=== PATIENT | male | born 1960 | race African-American/Black ===

== ENCOUNTER 2023-08-18 01:48 | Emergency (ER) | payer MEDICARE, MEDICAID ==
[~2023-08-18] VITALS: Ht 182.9 cm; Wt 127.0 kg
[~2023-08-18 01:48] MED LIST: AMLO10TA80 PO; HYDR-3735 PO; HYDR-4001 PO; POTA8CAP20 MT; TAMS-11 PO; THIA100T72 PO
[2023-08-18 01:55] VITALS: BP 129/84; PULSE 100; RESP 20; TEMP 98.1; O2SAT 96
[2023-08-18] MEDS: TETANUS, DIPHTHERIA, PERTUSSIS VAC/PF 0.5ML (>10YR OLD) IM ONE (02:52)
[2023-08-18] MEDS: LIDOCAINE HCL/PF 1% 10 MG/ML 5ML VIAL INFIL ONE (02:53)
== END 2023-08-18 03:30 | disposition home or self-care (01) ==
LOC: ER 02:04
DX: S91.311A Laceration without foreign body, right foot, initial encounter (principal); E11.9 Type 2 diabetes mellitus without complications; I10 Essential (primary) hypertension; F10.20 Alcohol dependence, uncomplicated; Z88.2 Allergy status to sulfonamides; W18.39XA Other fall on same level, initial encounter; Y93.89 Activity, other specified; Y92.89 Other specified places as the place of occurrence of the external cause; Y99.8 Other external cause status; Y90.9 Presence of alcohol in blood, level not specified
CPT/HCPCS: 99283; 73630; 90715; 12002; 90471; J3490

== ENCOUNTER 2024-05-10 01:11 | Emergency (ER) | payer BC ==
[~2024-05-10] VITALS: Ht 177.8 cm; Wt 100.0 kg
[~2024-05-10 01:11] MED LIST changes: -HYDR-4001 PO; +SERT-422 MT
[2024-05-10 01:51] VITALS: O2SAT 99
[2024-05-10 02:41] LABS: BASOPHILS % 0.3 % (0.0-2.0); DIFFERENTIAL COMMENT 0; EOSINOPHILS % 3.1 % (0.0-5.0); HEMATOCRIT. 35.8 % (42.0-52.0); HEMOGLOBIN. 12.2 g/dL (14.0-18.0); LYMPHOCYTES % 19.4 % (20.0-50.0); MEAN CORPUSCULAR HEMOGLOBIN 35.2 pg (28.0-32.0); MEAN CORPUSCULAR HGB CONC 34.1 g/dL (31.0-37.0); MEAN PLATELET VOLUME 7.8 fl (7.4-10.4); MONOCYTES % 6.1 % (2.0-8.0); NEUTROPHILS % 71.1 % (40.0-76.0); PLATELET 196 x1000/uL (130-400); RED BLOOD CELL COUNT 3.48 mill/uL (4.7-6.1); RED CELL DISTRIBUTION WIDTH 16.8 % (11.6-14.6); WHITE BLOOD COUNT 3.7 x1000/uL (4.5-11.0)
[2024-05-10 02:49] LABS: CHLORIDE 105 mEq/L (98-107); POTASSIUM 3.3 mEq/L (3.5-5.1); SODIUM 142 mEq/L (136-145)
[2024-05-10 02:50] LABS: CALCIUM 8.7 mg/dL (8.7-10.4); CARBON DIOXIDE 24 mEq/L (21-32)
[2024-05-10] MEDS: HALOPERIDOL LACTATE 5MG/ML VIAL IM STA (02:52)
[2024-05-10 02:55] LABS: GLUCOSE 97 mg/dL (70-105); UREA NITROGEN BLOOD 9 mg/dL (9-23)
[2024-05-10 02:57] LABS: ACETAMINOPHEN < 2 ug/mL (10-30)
[2024-05-10 03:05] LABS: ETHANOL BLOOD 309 mg/dL (<10)
[2024-05-10 03:39] LABS: LACTIC ACID 5.7 mmol/L (0.4-2.0)
[2024-05-10] MEDS: ACETAMINOPHEN 325MG TABLET PO ONE (08:33)
[2024-05-10] MEDS: CHLORDIAZEPOXIDE 25MG CAPSULE PO ONE ×2 (12:07→17:02)
[2024-05-10 12:43] LABS: CLARITY URINE CLEAR (CLEAR); COLOR URINE YELLOW (YELLOW); GLUCOSE URINE NEGATIVE (NEGATIVE); KETONES URINE NEGATIVE (NEGATIVE); LEUKOCYTE ESTERASE URINE NEGATIVE (NEGATIVE); NITRITE URINE NEGATIVE (NEGATIVE); OCCULT BLOOD URINE NEGATIVE (NEGATIVE); PROTEIN URINE NEGATIVE (NEGATIVE); SPECIFIC GRAVITY URINE 1.015 (1.005-1.030)
[2024-05-10 12:57] LABS: *AMPHETAMINES SCREEN URINE NEGATIVE (NEGATIVE); *BARBITURATES SCREEN URINE NEGATIVE (NEGATIVE); *BENZODIAZEPINES SCREEN URINE NEGATIVE (NEGATIVE); *COCAINE SCREEN URINE NEGATIVE (NEGATIVE)
[2024-05-10 12:58] LABS: CANNABINOID URINE SCREEN PRESUMPTIVE POSITIVE (NEGATIVE); ECSTASY MDMA SCREEN URINE NEGATIVE (NEGATIVE); METHADONE URINE SCREEN NEGATIVE (NEGATIVE); OPIATES URINE SCREEN NEGATIVE (NEGATIVE); PHENCYCLIDINE URINE SCREEN NEGATIVE (NEGATIVE)
[2024-05-10] MEDS: ACETAMINOPHEN 650MG/20.3ML UDC PO ONE (17:02)
[2024-05-10] MEDS: AMLODIPINE 5MG TABLET PO NR (23:14)
[2024-05-10] MEDS: POTASSIUM CHLORIDE 20MEQ TABLET SR PO NR (23:14)
[2024-05-10] MEDS: HYDROCODONE/ACETAMINOPHEN 5/325MG TABLET PO ONE (23:15)
[2024-05-11] MEDS: CLONIDINE 0.1MG TABLET PO ONE (02:55)
[2024-05-11] MEDS: AMLODIPINE 5MG TABLET PO ONE (02:56)
[2024-05-11] MEDS: LABETALOL 5MG/ML 4ML INJ IV NR (05:22)
[2024-05-11] MEDS: HYDRALAZINE 20MG/ML VIAL IV ONE (05:52)
[2024-05-11] MEDS: CLONIDINE 0.2MG TABLET PO ONE (07:15)
[2024-05-11] MEDS: CLONIDINE 0.1MG TABLET PO NR (08:32)
[2024-05-11] MEDS: SERTRALINE HCL 25MG TABLET PO SCH (09:00)
[2024-05-11 11:26] VITALS: BP 156/84; PULSE 85; RESP 16; TEMP 36.8; O2SAT 99
== END 2024-05-11 11:46 ==
LOC: ER 01:35
DX: R45.851 Suicidal ideations (principal); I10 Essential (primary) hypertension; F10.129 Alcohol abuse with intoxication, unspecified; Z79.899 Other long term (current) drug therapy; Z88.2 Allergy status to sulfonamides; Y90.8 Blood alcohol level of 240 mg/100 ml or more; Z20.822 Contact with and (suspected) exposure to COVID-19
CPT/HCPCS: 80305; 80048; 81003; 80307; 80329; 80320; 83605; 85025; 36415; 93005; 96372; 99285; 87426; 96374; 96375; J1630; J0360; J3490; G0480